=== PATIENT | female | born 1995 | race Caucasian/White ===

== ENCOUNTER 2025-05-13 16:27 | Outpatient (CLI) | payer BC, SELFPAY ==
--- NOTE | 2025-05-13 16:45 | CRLHL7_ITS ---
For Patients: As a result of the Century Cures Act, medical imaging exams and procedure reports are released immediately into your electronic medical record. You may view this report before your referring provider. If you have questions, please contact your health care provider. OBSTETRICAL ULTRASOUND TRANSVAGINAL, 05/13/2025 CLINICAL INDICATION: Dating and viability. LMP: 03/14/2025 GORDY by LMP: 12/19/2025 Gestational age: 8 weeks 4 days Previous ultrasound: Yes, weeks ago at [facility]. TECHNIQUE: Real-time rees-scale imaging of the fetus was performed transvaginal. Transvaginal imaging was performed for better visualization of the endometrium and ovaries. FINDINGS: CRL: 2.1 cm, 8 weeks 5 days; GORDY 12/18/2025 heart rate: 169 BPM Gestational sac: 3.2 cm, appears within normal limits Yolk sac: 4.2 mm, appears within normal limits Right ovary: Within normal limits; 3.6 x 2.8 x 2.6 cm, CL Left ovary: Within normal limits; 2.7 x 1.9 x 1.5 cm COMMENT: Right ovarian corpus luteum cyst 1.9 x 1.9 x 1.9 cm. IMPRESSION: 1. Single living intrauterine measuring 8 weeks 5 days with sonographic due date of 12/18/2025. 2. Lower uterine segment subchorionic hemorrhage measures 8 x 3 x 8 mm. ORTIZ LLAMAS M.D. Diagnostic Radiologist [email or web address] Transcribed: 3:[address]/Dictated by: Ortiz Llmaas MD @ 05/14/2025 3:19:00 PM (Electronically Signed)
== END 2025-05-13 16:28 | disposition home or self-care (01) ==
LOC: US 16:27
PROVIDERS: Visit Provider Physician Assistant
DX: O20.9 Hemorrhage in early pregnancy, unspecified (principal); Z3A.08 8 weeks gestation of pregnancy
CPT/HCPCS: 76817

== ENCOUNTER 2025-05-13 17:23 | Outpatient (CLI) | payer BC, SELFPAY ==
[2025-05-13 18:19] LABS: Hematocrit* 39.1 % (33.0-51.0); Hemoglobin* 12.7 gm/dL (12.0-16.0); Immature Granulocytes Abs Auto 0.00 K/uL (0.00-0.30); Immature Granulocytes Pct Auto 0.3 %; Lymphocytes Absolute Auto 3.10 K/uL (0.90-2.90); Mean Corpuscular HGB Conc 33 gm/dL (32-36); Mean Corpuscular Hemoglobin 27 pg (26-34); Mean Corpuscular Volume 84 fL (80-100); RDW Coefficient of Variation % 12.9 % (11.5-15.5); Red Blood Count* 4.66 m/uL (4.00-5.20); Slide Review Reflex No; White Blood Count* 13.76 K/uL (4.50-11.00)
[2025-05-13 20:17] LABS: Hepatitis B Surface Antigen* Negative (Negative)
[2025-05-13 20:25] LABS: HIV 1/2/P24 Combo Screen* Negative (Negative)
[2025-05-13 20:34] LABS: Hepatitis C Virus Antibody* Negative (Negative)
[2025-05-13 20:42] LABS: Hepatitis B Surface Antibody* Negative (Negative)
[2025-05-13 21:10] LABS: Chlamydia DNA Amplified* NOT DETECTED (No Detected); GC DNA Amplified* NOT DETECTED (No Detected)
[2025-05-15 16:07] LABS: Hepatitis B Core Antibodies Negative (Negative)
[2025-05-15 17:32] LABS: Hemoglobin - Other 0.0 % (0.0-0.0); Hemoglobin Cap ELP Not Performed
== END 2025-05-13 17:24 | disposition home or self-care (01) ==
PROVIDERS: Visit Provider Physician Assistant
DX: Z34.01 Encounter for supervision of normal first pregnancy, first trimester (principal); Z67.10 Type A blood, Rh positive; O20.9 Hemorrhage in early pregnancy, unspecified; Z3A.08 8 weeks gestation of pregnancy
CPT/HCPCS: 76817; 83020; 83021; 83036; 85025; 85660; 86592; 86703; 86704; 86706; 86762; 86787; 86803; 86850; 86900; 86901; 87086; 87340; 87491; 87591

== ENCOUNTER 2025-05-22 14:11 | Outpatient (CLI) | payer BC, SELFPAY | END 2025-05-22 14:12 | disposition home or self-care (01) | LOC: NFLDREF 14:11 | PROVIDERS: Visit Provider Physician Assistant | DX: Z34.91 Encounter for supervision of normal pregnancy, unspecified, first trimester (principal) | CPT/HCPCS: 86900; 86901 ==